=== PATIENT | male | born 1955 | race African-American/Black ===

== ENCOUNTER 2022-03-25 02:47 | Emergency (ER) | payer OTHER ==
[~2022-03-25] VITALS: Ht 172.7 cm; Wt 77.1 kg
[2022-03-25 03:10] VITALS: BP 138/90
--- NOTE | 2022-03-25 03:10 | NUR ---
BIB FOR C/O "PERSISTENT DRY COUGH X 1 MONTH". PATIENT IS AAOX4. COUGHING. PLACED IN RM 19. VITALS CHECKED.
[2022-03-25] MEDS ORDERED: GUAIFENESIN/D-METHORPHAN HB 5 ML UDC ONE (03:27)
[2022-03-25] MEDS ORDERED: GUAIFENESIN/D-METHORPHAN HB 5 ML UDC PO ONE (03:30)
[2022-03-25] MEDS ORDERED: PROM118S PO (05:27)
--- NOTE | 2022-03-25 05:38 | NUR ---
Patient discharged to home in stable condition. Written and verbal after care instructions given. Patient verbalizes understanding of instruction.
== END 2022-03-25 05:42 | disposition home or self-care (01) ==
LOC: ER 02:51
DX: R05.9 Cough, unspecified (principal); U09.9 Post COVID-19 condition, unspecified; I10 Essential (primary) hypertension; Z79.899 Other long term (current) drug therapy
CPT/HCPCS: 71045-TC

== ENCOUNTER 2024-07-09 13:06 | Emergency (ER) | payer OTHER ==
[~2024-07-09] VITALS: Ht 185.4 cm; Wt 81.6 kg
[~2024-07-09 13:06] MED LIST: PROM118S PO
[2024-07-09 14:47] LABS: ALANINE AMINOTRANSFERASE 36 U/L (12-78); ALBUMIN 4.1 g/dL (3.4-5.0); ALCOHOL, BLOOD 362 mg/dL (0-10); ALKALINE PHOSPHATASE 88 U/L (46-116); ASPARTATE AMINOTRANSFERASE 28 U/L (15-37); BILIRUBIN,DIRECT 0.2 mg/dL (0.0-0.2); BILIRUBIN,TOTAL 0.6 mg/dL (0.2-1.0); CALCIUM, SERUM 8.5 mg/dL (8.5-10.1); CARBON DIOXIDE 26 mmol/L (21-32); CHLORIDE 106 mmol/L (98-107); CREATININE 0.6 mg/dL (0.6-1.3); GLUCOSE 117 mg/dL (74-106); SODIUM SERUM 145 mmol/L (136-145); TOTAL PROTEIN, SERUM 8.1 g/dL (6.4-8.2); UREA NITROGEN, BLOOD 14 mg/dL (7-18)
[2024-07-09 14:51] LABS: BASOPHILS % (AUTO) 0.7 % (0.0-2.0); HEMATOCRIT 52 % (39-51); HEMOGLOBIN 17.8 g/dL (13.5-17.5); LYMPHOCYTES # (AUTO) 1.2 K/uL (0.8-4.8); LYMPHOCYTES % (AUTO) 21.8 % (20.0-44.0); MEAN CORPUSCULAR HEMOGLOBIN 30 PG (26.0-33.0); MEAN CORPUSCULAR HGB CONC 34 g/dl (31.0-36.0); MEAN CORPUSCULAR VOLUME 88 fL (80-96); MONOCYTES # (AUTO) 0.4 K/uL (0.1-1.30); MONOCYTES % (AUTO) 7.2 % (2.0-12.0); NEUTROPHILS # (AUTO) 3.9 K/uL (1.8-8.9); NEUTROPHILS % (AUTO) 70.3 % (43.0-81.0); PLATELET COUNT (AUTO) 234 K/uL (150-450); RED BLOOD CELL COUNT(AUTO) 5.91 MIL/uL (4.5-6.0); RED CELL DISTRIBUTION WIDTH 14.5 % (11.5-15.0); WHITE BLOOD COUNT (AUTO) 5.5 K/uL (4.3-11.0)
[2024-07-09 15:02] LABS: ACETAMINOPHEN <10 ug/ml (10-30)
[2024-07-09 15:18] VITALS: BP 140/78; TEMP 98; O2SAT 95
[2024-07-09 19:08] LABS: ANISOCYTOSIS 1+; LYMPHOCYTES % (MANUAL) 26 % (16-48); MONOCYTES % (MANUAL) 10 % (0-11.0); NEUTROPHILS % (MANUAL) 64 (42-76); PLATELET ESTIMATE ADEQUATE
== END 2024-07-09 15:19 | disposition home or self-care (01) ==
LOC: ER 13:31
DX: F10.129 Alcohol abuse with intoxication, unspecified (principal); Y90.8 Blood alcohol level of 240 mg/100 ml or more; I10 Essential (primary) hypertension
CPT/HCPCS: 36415; 80048-TC; 80076-TC; 85025-TC; G0480